=== PATIENT | female | born 1955 | race African-American/Black ===

== ENCOUNTER 2017-11-15 16:06 | Emergency (ER) | payer OTHER ==
[~2017-11-15] VITALS: Ht 157.5 cm; Wt 98.0 kg
[2017-11-15] MEDS ORDERED: KETOROLAC 30MG/ML VIAL IV ONE (17:30)
[2017-11-15] MEDS ORDERED: METOCLOPRAMIDE HCL 10MG/2ML VIAL IV ONE (17:30)
[2017-11-15 19:23] VITALS: BP 155/90
== END 2017-11-15 19:24 | disposition home or self-care (01) ==
LOC: ER 17:06
DX: R51 Headache (principal); I10 Essential (primary) hypertension; Z95.0 Presence of cardiac pacemaker; D09.3 Carcinoma in situ of thyroid and other endocrine glands; Z98.890 Other specified postprocedural states
CPT/HCPCS: 93005; 96374; 96375; 99284; J1885; J2765; Z7610

== ENCOUNTER → 2019-09-29 | Outpatient (CLI) | payer MEDICARE ==
[~2019-09-29] MED LIST: ACUL5 LEFTEYE; CARV12.545 PO; CETI10TA10 PO; ERGO500013 PO; ESOM40CA PO; LORA-250 PO; LOSA50TA41 PO
== END | disposition home or self-care (01) ==
LOC: LAB 15:05
PROVIDERS: ATTEND Ophthalmology
DX: Z01.818 Encounter for other preprocedural examination (principal); Z11.59 Encounter for screening for other viral diseases
CPT/HCPCS: 87635; C9803